=== PATIENT | female | born 1960 | race American Indian/Alaskan Native ===

== ENCOUNTER 2019-10-16 20:35 | Emergency (ER) | payer SELFPAY ==
--- NOTE | 2019-10-17 02:34 | XRay Report ---
BILATERAL KNEE, 4 VIEWS INDICATION / CLINICAL INFORMATION: LEFT KNEE PAIN. COMPARISON: None available. FINDINGS: Left knee: Severe degenerative change is present in all 3 compartments of the knee. There is prominen t joint space loss and hypertrophic change present. There may be a very small suprapatellar joint eff usion. No visible fracture or malalignment. Right knee: Right knee arthroplasty is present. The hardware is intact. No visible fracture or disloc ation. Very small suprapatellar joint effusion is noted. IMPRESSION: 1. Severe degenerative change of the left knee with tiny suprapatellar joint effusion. 2. Right knee arthroplasty present without associated abnormality. Probable tiny suprapatellar joint effusion. Signer Name: Viji King MD Signed: 10/17/2019 2:29 AM Workstation Name: [id number]
[2019-10-17] MEDS ORDERED: IBUPROFEN 600 MG TAB PO ONE (02:40)
[2019-10-17] MEDS ORDERED: ACETAMINOPHEN 500 MG TAB PO ONE (02:40)
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
[2019-10-17 07:33] VITALS: BP 123/70
== END 2019-10-17 03:45 | disposition home or self-care (01) ==
LOC: ED 20:35
DX: S80.02XA Contusion of left knee, initial encounter (principal); S80.01XA Contusion of right knee, initial encounter; X58.XXXA Exposure to other specified factors, initial encounter; Y93.89 Activity, other specified; Y92.488 Other paved roadways as the place of occurrence of the external cause; Y99.8 Other external cause status
CPT/HCPCS: 99284